=== PATIENT | female | born 1960 | race Caucasian/White ===

== ENCOUNTER → 2017-07-12 | Outpatient (CLI) | payer OTHER ==
[~2017-07-12] MED LIST: IBU800 PO; PER PO
--- NOTE | 2017-07-12 16:20 | RADIOLOGY IMAGING REPORT ---
FACILITY: [facility] PATIENT NAME: SHIRA ROBLEDO : [id number] MR: [id number] V: [id number] EXAM DATE: ORDERING PHYSICIAN: SALINAS HWANG TECHNOLOGIST: Adelita Duran PROCEDURE:BILATERAL DIGITAL SCREENING MAMMOGRAM WITH CAD ASSISTED INTERPRETATION & 3D TOMOSYNTHESIS COMPARISON:Prior mammograms 06/26/16, 02/13/13 INDICATIONS:SCREENING FINDINGS: Scattered fibroglandular tissue. No significant mass, microcalcifications or architectural distortion. No change compared to prior. IMPRESSION: BIRADS 1: Normal exam. Annual mammographic screening recommended. Dictated by: Destin Melgoza on 07/12/2017 at 10:43 Transcribed by: SAL on 07/12/2017 at 11:24 Approved by: Destin Melgoza on 07/12/2017 at 16:19 [facility]
== END ==
LOC: MAMO 03:07
PROVIDERS: ATTEND Family Medicine
DX: Z12.31 Encounter for screening mammogram for malignant neoplasm of breast (principal)
CPT/HCPCS: 77063; 77067